=== PATIENT | male | born 1990 | race American Indian/Alaskan Native ===

== ENCOUNTER 2018-08-25 23:24 | Inpatient (IN) | payer SELFPAY ==
[2018-08-26 00:11] LABS: Basophils # (Auto) 0.1 K/mm3 (0.0-0.1); Basophils % (Auto) 0.6 % (0.0-1.8); Eosinophils # (Auto) 0.4 K/mm3 (0.0-0.4); Eosinophils % (Auto) 4.5 % (0.0-4.3); Hemoglobin 13.5 gm/dl (11.8-15.2); Lymphocytes # (Auto) 2.4 K/mm3 (1.2-5.4); Lymphocytes % (Auto) 27.3 % (13.4-35.0); Mean Corpuscular HGB Conc 33 % (32-34); Mean Corpuscular Volume 99 fl (84-94); Monocytes # (Auto) 1.3 K/mm3 (0.0-0.8); Monocytes % (Auto) 15.2 % (0.0-7.3); Platelet Count 272 K/mm3 (140-440); Red Blood Count 4.16 M/mm3 (3.65-5.03); Red Cell Distribution Width 14.3 % (13.2-15.2)
[2018-08-26 00:15] LABS: Bilirubin,Urine NEG (Negative); Blood,Urine NEG (Negative); Color,Urine Amber (Yellow); Mucus,Urine 1+ /HPF; Protein,Urine <15 mg/dL mg/dL (Negative)
--- NOTE | 2018-08-26 00:19 | Emergency Department Report ---
ED Abdominal Pain HPI - General Chief Complaint: Abdominal Pain Stated Complaint: CHEST PAIN SOB BLOOD IN VOMIT Time Seen by Provider: 08/26/18 00:01 Source: patient Mode of arrival: Ambulatory Limitations: No Limitations - History of Present Illness Initial Comments: 27-year-old -[place] male has relocated to [facility] from [place] comes in complaining of nausea vomiting diarrhea with diffuse abdominal pain and chest pain. Patient reports that he has vomited 3 times today and has had multiple episodes of diarrhea with nausea. Patient reports he is taking nothing for his discomfort. Patient reports that he had eaten Citizen Of [place] food on Friday and He started to feel bad. Patient reports he was seen in [facility] a month ago for the same issues. Patient has not followed up with a primary care provider. -: days(s) (3) Location: diffuse Radiation: epigastric Severity: severe Severity scale (0 -10): 10 Quality: cramping, sharp Consistency: constant Improves With: nothing Worsens With: nothing Context: possible food poisoning Treatments Prior to Arrival: other (none) - Related Data Allergies Allergy/AdvReac Type Severity Reaction Status Date / Time No Known Allergies Allergy Unverified 08/25/18 23:34 ED Review of Systems ROS: Stated complaint: CHEST PAIN SOB BLOOD IN VOMIT Other details as noted in HPI Comment: All other systems reviewed and negative Gastrointestinal: abdominal pain, nausea, vomiting Neurological: headache ED Past Medical Hx - Past Medical History Previous Medical History?: No - Surgical History Past Surgical History?: Yes Additional Surgical History: left ankle surgery - Social History Smoking Status: Never Smoker Substance Use Type: None ED Physical Exam - General Limitations: No Limitations General appearance: alert, in no apparent distress - Head Head exam: Present: atraumatic, normocephalic - Eye Eye exam: Present: normal appearance - ENT ENT exam: Present: mucous membranes moist - Neck Neck exam: Present: normal inspection - Respiratory Respiratory exam: Present: normal lung sounds bilaterally. Absent: respiratory distress - Cardiovascular Cardiovascular Exam: Present: regular rate, normal rhythm. Absent: systolic murmur, diastolic murmur, rubs, gallop - GI/Abdominal GI/Abdominal exam: Present: soft, tenderness - Extremities Exam Extremities exam: Present: normal inspection - Back Exam Back exam: Present: normal inspection - Neurological Exam Neurological exam: Present: alert, oriented X3 - Psychiatric Psychiatric exam: Present: normal affect, normal mood - Skin Skin exam: Present: warm, dry, intact, normal color. Absent: rash ED Course Vital Signs 08/25/18 23:30 Temperature 98.0 F Respiratory 16 Rate Blood Pressure 114/70 ED Medical Decision Making - Lab Data Lab Results 08/25/18 08/25/18 08/25/18 Range/Units 23:43 23:43 Unknown WBC 8.7 (4.5-11.0) K/mm3 RBC 4.16 (3.65-5.03) M/mm3 Hgb 13.5 (11.8-15.2) gm/dl Hct 41.0 (35.5-45.6) % MCV 99 H (84-94) fl MCH 32 (28-32) pg MCHC 33 (32-34) % RDW 14.3 (13.2-15.2) % Plt Count 272 (140-440) K/mm3 Lymph % (Auto) 27.3 (13.4-35.0) % [place] % (Auto) 15.2 H (0.0-7.3) % Eos % (Auto) 4.5 H (0.0-4.3) % Baso % (Auto) 0.6 (0.0-1.8) % Lymph # 2.4 (1.2-5.4) K/mm3 [place] # 1.3 H (0.0-0.8) K/mm3 Eos # 0.4 (0.0-0.4) K/mm3 Baso # 0.1 (0.0-0.1) K/mm3 Seg Neutrophils % 52.4 (40.0-70.0) % Seg Neutrophils # 4.5 (1.8-7.7) K/mm3 Sodium 141 (137-145) mmol/L Potassium 4.1 (3.6-5.0) mmol/L Chloride 103.3 (98-107) mmol/L Carbon Dioxide 28 (22-30) mmol/L Anion Gap 14 mmol/L BUN 9 (9-20) mg/dL Creatinine 0.7 L (0.8-1.5) mg/dL Estimated GFR > 60 ml/min BUN/Creatinine Ratio 13 % Glucose 91 (75-100) mg/dL Calcium 8.9 (8.4-10.2) mg/dL Total Bilirubin 3.30 H (0.1-1.2) mg/dL AST 979 H (5-40) units/L ALT 1514 H (7-56) units/L Alkaline Phosphatase 207 H (35-129) units/L Total Protein 6.6 (6.3-8.2) g/dL Albumin 3.6 L (3.9-5) g/dL Albumin/Globulin Ratio 1.2 % Urine Color Nereyda (Yellow) Urine Turbidity Clear (Clear) Urine pH 7.0 (5.0-7.0) Ur Specific [place] 1.015 (1.003-1.030) Urine Protein <15 mg/dl (Negative) mg/dL Urine Glucose (UA) Neg (Negative) mg/dL Urine Ketones Neg (Negative) mg/dL Urine Blood Neg (Negative) Urine Nitrite Neg (Negative) Urine Bilirubin Neg (Negative) Urine Urobilinogen 4.0 (<2.0) mg/dL Ur Leukocyte Esterase Tr (Negative) Urine WBC (Auto) 4.0 (0.0-6.0) /HPF Urine RBC (Auto) 3.0 (0.0-6.0) /HPF U Epithel Cells (Auto) 2.0 (0-13.0) /HPF Urine Mucus 1+ /HPF - EKG Data EKG shows normal: sinus rhythm Rate: normal - Radiology Data Radiology results: report reviewed - Medical Decision Making FINAL REPORT EXAM: CT ABDOMEN PELVIS W CON HISTORY: epigastric pain TECHNIQUE: Routine axial imaging was obtained of the abdomen and pelvis fol lowing the intravenous injection of 100 cc of Omnipaque 300. Delayed imaging was obtained through the kidneys ureters and bladder. Sagittal and coronal reconstructions were reviewed. FINDINGS: The lung bases are clear. Pleural fluid is not seen. The liver, gallbladder, biliary tree, pancreas, spleen, and adrenal glands appear normal. The kidneys reveal an 8 millimeter cortical cyst in the upper pole of left kidney. There is no evidence of hydronephrosis. The abdominal aorta is normal in caliber. The portal vein enhances normally. The bowel loops are normal in caliber and course. The appendix is not seen. There is no evidence of free fluid or adenopathy. In the pelvis the prostate gland and bladder appear normal. The skeletal structures appear well maintained. IMPRESSION: No acute process in the abdomen and pelvis. Appendix not identified. No evidence of any inflammatory process in the right lower quadrant. Small cortical cyst upper pole left kidney. Transcribed By: RB Dictated By: JEANNETTE JOHNSON MD Electronically Authenticated By: JEANNETTE JOHNSON MD Signed Date/Time: 08/26/18148 DD/ 1 TD/TT: 08/26/18151 Critical care attestation.: If time is entered above; I have spent that time in minutes in the direct care of this critically ill patient, excluding procedure time. ED Disposition Clinical Impression: Acute hepatitis B Disposition: OP ADMIT IP TO THIS HOSP Is pt being admited?: Yes Does the pt Need Aspirin: No Condition: Stable Referrals: PRIMARY CARE, [Primary Care Provider] - 3-5 Days
[2018-08-26] MEDS ORDERED: ZOFRAN ODT PO ONE (00:26)
[2018-08-26 00:27] LABS: Albumin 3.6 g/dL (3.9-5); BUN/Creatinine Ratio 13; Blood Urea Nitrogen 9 mg/dL (9-20); Calcium 8.9 mg/dL (8.4-10.2); Hemolysis Index 8
[2018-08-26 00:39] LABS: Alanine Aminotransferase 1514 units/L (7-56)
[2018-08-26] MEDS ORDERED: NACL 0.9% 1000 ML 1,000 ML IV ONE (01:09)
--- NOTE | 2018-08-26 01:49 | Cat Scan Report ---
FINAL REPORT EXAM: CT ABDOMEN PELVIS W CON HISTORY: epigastric pain TECHNIQUE: Routine axial imaging was obtained of the abdomen and pelvis following the intravenous in jection of 100 cc of Omnipaque 300. Delayed imaging was obtained through the kidneys ureters and blad broderick. Sagittal and coronal reconstructions were reviewed. FINDINGS: The lung bases are clear. Pleural fluid is not seen. The liver, gallbladder, biliary tree, pancreas, spleen, and adrenal glands appear normal. The kidneys reveal an 8 millimeter cortical cyst in the upper pole of left kidney. There is no evidence of hydro nephrosis. The abdominal aorta is normal in caliber. The portal vein enhances normally. The bowel loo ps are normal in caliber and course. The appendix is not seen. There is no evidence of free fluid or adenopathy. In the pelvis the prostate gland and bladder appear normal. The skeletal structures appea r well maintained. IMPRESSION: No acute process in the abdomen and pelvis. Appendix not identified. No evidence of any inflammatory process in the right lower quadrant. Small cortical cyst upper pole left kidney.
[2018-08-26 01:54] LABS: Hepatitis B Surface Antigen Reactive (Negative); Hepatitis C Virus Antibody Non-Reactive (NonReactive)
[2018-08-26] MEDS ORDERED: ZOFRAN IV PRN (03:55)
[2018-08-26] MEDS ORDERED: TYLENOL PO PRN (03:56)
[2018-08-26] MEDS ORDERED: NACL 0.9% 1000 ML 1,000 ML IV SCH (04:00)
--- NOTE | 2018-08-26 05:14 | History and Physical Report ---
CHIEF COMPLAINT: Abdominal pain. Other complaint includes hematemesis, nausea, vomiting and diarrhea. HISTORY OF PRESENT ILLNESS: The patient is a 27-year-old male who has been having abdominal pain going on for a few days and was associated with nausea, vomiting and diarrhea. Also, the patient complained about having hematemesis 3 times before presenting to the Emergency Room. There is no history of hematochezia, no history of melena. The patient also denies history of fever, shortness of breath or chest pain and said that the pain is mainly in the epigastric area with severity of about 10/10. Pain is sharp in consistency and not affected by movement and the pain does not radiate. PAST MEDICAL HISTORY: Unremarkable. PAST SURGICAL HISTORY: Pertinent for left ankle surgery. FAMILY HISTORY: Noncontributory. SOCIAL HISTORY: The patient does not smoke, does not drink alcohol and does not use illicit drugs. MEDICATIONS: The patient is not on any medication. ALLERGIES: There are no known drug allergies. REVIEW OF SYSTEMS: CONSTITUTIONAL: There is no fever, no chills, no diaphoresis. HEENT: There is no headache or sore throat. CARDIOVASCULAR SYSTEM: There is no chest pain or orthopnea. RESPIRATORY SYSTEM: There is no shortness of breath or cough. GASTROINTESTINAL SYSTEM: Abdominal pain is present. Nausea, vomiting and diarrhea present. Hematemesis present. No hematochezia, no melena, no constipation. NEUROLOGICAL SYSTEM: There is no numbness, no dizziness, no altered mental status. MUSCULOSKELETAL SYSTEM: There is no joint pain or swelling. DERMATOLOGICAL SYSTEM: There is no skin rash or itching. GENITOURINARY SYSTEM: There is no dysuria, hematuria or flank pain. Rest of system review is normal. PHYSICAL EXAMINATION: GENERAL: At the time of exam, the patient was found to be alert, oriented x 3, not in acute distress. VITAL SIGNS: At the initial time of presentation show a temperature of 98 degrees Fahrenheit, pulse of ____, blood pressure 114/70, normal O2 sats on room air. HEENT: Shows pupils to be equal, round, reactive to light and accommodation. Extraocular muscles are intact. NECK: Supple with no JVD or carotid bruit. CARDIOVASCULAR SYSTEM: Shows normal first and second heart sounds with no gallops or murmur. RESPIRATORY SYSTEM: Shows good air entry on both sides of the lungs with no abnormal breath sounds. GASTROINTESTINAL SYSTEM: Showed abdomen to be full, soft with tenderness in the suprapubic area and left lower quadrant as well as right lower quadrant. There is no organomegaly. Bowel sound is normal. There is no rebound tenderness or rigidity. NEUROLOGIC: Shows no focal deficit. MUSCULOSKELETAL SYSTEM: Shows no joint swelling or tenderness. DERMATOLOGICAL SYSTEM: Shows no skin rash. GENITOURINARY SYSTEM: Showing no costovertebral angle tenderness. PERTINENT LABORATORY AND IMAGING STUDY: The patient had CT of the abdomen and pelvis done which shows no active process in the abdomen and pelvis. The appendix was not identified and there was no evidence of any inflammatory process in the right lower quadrant. Labs results; the patient had CBC done with normal white count, normal hemoglobin and normal hematocrit. CBC differential showed high monocyte count of 15.2% and high eosinophilic count of 4.5%. The patient's chemistry showed elevated total bilirubin of 3.3 with elevated liver transaminases showing high AST of 979 and high ALT of 1514 with elevated alkaline phosphatase of 207. The patient's albumin level is low with a value of 3.6 and lipase level is high with a value of 196. The patient's urinalysis showed trace urine leukocyte esterase, negative urine nitrites, normal urine WBC, and no bacteria was seen. The patient has serology done with nonreactive hepatitis A test and reactive hepatitis B surface antigen as well as reactive hepatitis B core IgM antibody and nonreactive hepatitis C. DIAGNOSES: 1. Acute hepatitis B infection. 2. Hemetemesis PLAN OF ACTION: 1. The patient will be admitted to medical/surgical [place]. 2. The patient will be on IV normal saline at 125 mL an hour. 3. The patient will be on IV morphine 2 mg every 4 hours as needed for pain and IV Zofran 4 mg every 8 hours for nausea and vomiting. 4. The patient will have Infectious Disease consult with Dr. Mima Joseph for initiation of antihepatitis B treatment. 5. The patient will also have Gastroenterology consult with Dr. Wyatt Mott of [facility] because of hematemesis. 6. The patient will have hemoglobin and hematocrit checked every 6 hours x 2 more levels. 7. The patient will remain n.p.o. until seen by the wash oil cooler operator. 8. The patient will be on Protonix 40 mg IV every 12 hours and will be on IV Zofran 4 mg every 8 hours for nausea and vomiting. JOB# [id number] OCN/NTS MTDD
[2018-08-26 06:03] LABS: Hematocrit 36.9 % (35.5-45.6); Hemoglobin 12.5 gm/dl (11.8-15.2)
[2018-08-26] MEDS ORDERED: D5/0.45NS 1,000 ML IV ONE ×2 (06:18→11:55)
[2018-08-26] MEDS ORDERED: D5/0.45NS 1,000 ML IV SCH ×2 (06:20→07:00)
[2018-08-26] MEDS ORDERED: PROTONIX IV ONE (10:34)
[2018-08-26] MEDS ORDERED: MORPHINE ONE (10:36)
[2018-08-26] MEDS: MORPHINE IV PRN ×2 (10:43→21:09)
[2018-08-26] MEDS: PROTONIX IV SCH ×2 (10:43→21:09)
--- NOTE | 2018-08-26 12:34 | Gastroenterology Consultation ---
Addendum entered and electronically signed by TASHA HARDEN MD 08/26/18 18:06: Patient seen and examined on08/26/2017. Agree with A/P and recommendations as stated. 27 yo male with no pmh presenting with diffuse abdominal pain and nausea/vomiting after having [place] food. Found to have acute viral hepatitis B based on serologies. H/H stable and no additional hematemesis. - monitor liver enzymes and H/H. - cont with PPI. - ID on board. agree with checking also for HIV but patient refused. - will follow. Original Note: History of Present Illness - Reason for Consult Consult date: 08/26/18 hematemesis Requesting physician: AJIT DAVILA - History of Present Illness Patient is a 27 y/o male with no significant PMH who presented to ED with c/o diffuse abd pain described as cramping, diarrhea, and N/V x 3-4 days after ea ting on [place] food on Friday. Upon admission, his LFTs were found to be significantly elevated with hepatitis panel revealing hepatitis Bs Antigen and hepatitis B core IgM Ab positive and was admitted for an acute hep B infection. ID consult pending. Abd CT showed no acute process (liver normal). He also c/o an episode of hematemesis to which GI has been consulted. H/H WNL. This afternoon patient was resting on stretcher w/o acute distress. He reports 1 episode of scant amount of hematemesis yesterday after multiple episodes of N/V, which has now improved. No melena or hematochezia. Admits to some continued intermittent abd cramping and diarrhea which is also improving. Denies fever, CP, SOB, dizziness, wt loss, dysphagia, odynophagia, jaundice, or constipation. No prior hx of liver disease or PUD. No previous EGD. No NSAID use. No Fhx of liver disease. No IV drug use. Admits to same sex intercourse. Last tattoo received 06/2018. Past History Past Medical History: No medical history Past Surgical History: No surgical history, Other (left ankle) Social history: denies: smoking, alcohol abuse Family history: no significant family history Medications and Allergies Allergies Allergy/AdvReac Type Severity Reaction Status Date / Time No Known Allergies Allergy Unverified 08/25/18 23:34 Home Medications Medication Instructions Recorded Confirmed Last Taken Type No Known Home Medications [No 08/26/18 08/26/18 Unknown History Reported Home Medications] Active Meds: Active Medications Acetaminophen (Tylenol) 650 mg PO Q4H PRN PRN Reason: Fever >101 Dextrose/Sodium Chloride (D5/0.45ns) 1,000 mls @ 125 mls/hr IV DIRECT FRANNY Stop: 08/26/18 14:00 Last Admin: 08/26/18 06:26 Dose: 125 mls/hr Documented by: Morphine Sulfate (Morphine) 2 mg IV Q4H PRN PRN Reason: Pain, Moderate (4-6) Last Admin: 08/26/18 10:43 Dose: 2 mg Documented by: Ondansetron HCl (Zofran) 4 mg IV Q8H PRN PRN Reason: Nausea And Vomiting Pantoprazole Sodium (Protonix) 40 mg IV BID [facility] Last Admin: 08/26/18 10:43 Dose: 40 mg Documented by: medications reviewed/updated as required Review of Systems - Review of Systems All systems: negative Gastrointestinal: abdominal pain (cramping), nausea, vomiting, hematemesis, no melena, no hematochezia Exam - Constitutional Vital Signs: Temp Pulse Resp BP Pulse Ox 98.5 F 55 L 16 113/51 99 08/26/18 04:39 08/26/18 08:21 08/26/18 08:21 08/26/18 08:21 08/26/18 08:21 General appearance: no acute distress - EENT Eyes: PERRL, EOM intact ENT: hearing intact - Respiratory Respiratory: bilateral: CTA - Cardiovascular Rhythm: other (bradycardia) - Gastrointestinal General gastrointestinal: Present: soft, non-tender, non-distended, normal bowel sounds - Neurologic Neurological: alert and oriented x3 - Labs CBC & Chem 7: 08/26/18 05:50 08/25/18 23:43 Lab Results: Laboratory Results - last 24 hr 08/25/18 08/25/18 08/25/18 23:43 23:43 Unknown WBC 8.7 RBC 4.16 Hgb 13.5 Hct 41.0 MCV 99 H MCH 32 MCHC 33 RDW 14.3 Plt Count 272 Lymph % (Auto) 27.3 [place] % (Auto) 15.2 H Eos % (Auto) 4.5 H Baso % (Auto) 0.6 Lymph # 2.4 [place] # 1.3 H Eos # 0.4 Baso # 0.1 Seg Neutrophils % 52.4 Seg Neutrophils # 4.5 Sodium 141 Potassium 4.1 Chloride 103.3 Carbon Dioxide 28 Anion Gap 14 BUN 9 Creatinine 0.7 L Estimated GFR > 60 BUN/Creatinine Ratio 13 Glucose 91 Calcium 8.9 Total Bilirubin 3.30 H AST 979 H ALT 1514 H Alkaline Phosphatase 207 H Total Creatine Kinase Total Protein 6.6 Albumin 3.6 L Albumin/Globulin Ratio 1.2 Lipase Urine Color [place]da Urine Turbidity Clear Urine pH 7.0 Ur Specific [place] 1.015 Urine Protein <15 mg/dl Urine Glucose (UA) Neg Urine Ketones Neg Urine Blood Neg Urine Nitrite Neg Urine Bilirubin Neg Urine Urobilinogen 4.0 Ur Leukocyte Esterase Tr Urine WBC (Auto) 4.0 Urine RBC (Auto) 3.0 U Epithel Cells (Auto) 2.0 Urine Mucus 1+ Hepatitis A IgM Ab Hep Bs Antigen Hep B Core IgM Ab Hepatitis C Antibody 08/26/18 08/26/18 08/26/18 00:00 01:09 01:09 WBC RBC Hgb Hct MCV MCH MCHC RDW Plt Count Lymph % (Auto) [place] % (Auto) Eos % (Auto) Baso % (Auto) Lymph # [place] # Eos # Baso # Seg Neutrophils % Seg Neutrophils # Sodium Potassium Chloride Carbon Dioxide Anion Gap BUN Creatinine Estimated GFR BUN/Creatinine Ratio Glucose Calcium Total Bilirubin AST ALT Alkaline Phosphatase Total Creatine Kinase 99 Total Protein Albumin Albumin/Globulin Ratio Lipase 196 H Urine Color Urine Turbidity Urine pH Ur Specific [place] Urine Protein Urine Glucose (UA) Urine Ketones Urine Blood Urine Nitrite Urine Bilirubin Urine Urobilinogen Ur Leukocyte Esterase Urine WBC (Auto) Urine RBC (Auto) U Epithel Cells (Auto) Urine Mucus Hepatitis A IgM Ab Non-reactive Hep Bs Antigen Reactive Hep B Core IgM Ab Reactive A Hepatitis C Antibody Non-reactive 08/26/18 05:50 WBC RBC Hgb 12.5 Hct 36.9 MCV MCH MCHC RDW Plt Count Lymph % (Auto) [place] % (Auto) Eos % (Auto) Baso % (Auto) Lymph # [place] # Eos # Baso # Seg Neutrophils % Seg Neutrophils # Sodium Potassium Chloride Carbon Dioxide Anion Gap BUN Creatinine Estimated GFR BUN/Creatinine Ratio Glucose Calcium Total Bilirubin AST ALT Alkaline Phosphatase Total Creatine Kinase Total Protein Albumin Albumin/Globulin Ratio Lipase Urine Color Urine Turbidity Urine pH Ur Specific [place] Urine Protein Urine Glucose (UA) Urine Ketones Urine Blood Urine Nitrite Urine Bilirubin Urine Urobilinogen Ur Leukocyte Esterase Urine WBC (Auto) Urine RBC (Auto) U Epithel Cells (Auto) Urine Mucus Hepatitis A IgM Ab Hep Bs Antigen Hep B Core IgM Ab Hepatitis C Antibody Assessment and Plan 1.hematemesis -H/H WNL (12.5/36.9) -continue to monitor H/H and transfuse as needed -hold blood thinning medications -patient reports diffuse abd cramping with associated diarrhea and N/V x 3-4 days after eating [place] food on Friday with N/V and diarrhea improving. He reports 1 episode of hematemesis with a scant amount of bright red blood yesterday after multiple episodes of vomiting with non-bloody emesis. No further signs of bleeding overnight or today. No melena or hematochezia. -currently HD stable -etiology-likely 2/2 M-W tear vs esophagitis vs other -no plans for EGD at this time unless overt bleeding develops given no clinical evidence of significant GI bleeding -okay to start on clears -continue PPI and supportive care 2.acute hepatitis B infection -elevated LFTs (T.thierry 3.30, AST 979, ALT 1514, alk phos 207) -hepatitis Bs Ag and hepatitis B core IgM Ab positive -abd CT w/o acute findings (liver normal) -ID consult pending -further hep B serologies and INR pending -continue to trend labs and supportive care -will follow
[2018-08-26 14:10] LABS: Hematocrit 39.2 % (35.5-45.6); Hemoglobin 13.1 gm/dl (11.8-15.2)
[2018-08-26 14:21] LABS: INR 1.18 (0.87-1.13)
[2018-08-26 14:31] LABS: Albumin 3.3 g/dL (3.9-5); BUN/Creatinine Ratio 9; Blood Urea Nitrogen 7 mg/dL (9-20); Calcium 8.3 mg/dL (8.4-10.2); Hemolysis Index 22
[2018-08-26 14:47] LABS: Alanine Aminotransferase 1432 units/L (7-56)
--- NOTE | 2018-08-26 15:03 | Consultation ---
History of Present Illness - Reason for Consult Consult date: 08/26/18 Acute Hepatitis B Requesting physician: AJIT DAVILA - History of Present Illness The patient is a 27-year-old male with no significant past medical history who developed abdominal cramping, nausea and vomiting about 2-3 days prior, finally he had an episode of scant hematemesis and hence he came to the hospital. Here, he was noted to have a significant transaminitis and acute hepatitis panel was suggestive of an acute hepatitis B infection. Hence infectious diseases was consulted. He denies any fevers or chills. He currently is feeling well with no more episodes of hematemesis. He denies any IV or recreational drug use, drinks alcohol socially, denies any smoking. He admits to MSM behavior. States his last HIV test was in July 2018 and was negative. He moved here from [place] about 6 months ago and has been with a stable partner. He is unsure if he has been vaccinated for Hepatitis A in the past. Review of Systems: General: no fevers,chills or rigors HEENT: no new visual disturbance Respiratory: No cough, sputum, hemoptysis or shortness of breath Cardiovascular: No chest pain, syncope Gastrointestinal: + nausea, vomiting and hematemesis Genitourinary: No dysuria or hematuria Musculoskeletal: No new or worsening neck pain or back pain Neurologic: No headaches, seizures Hematologic: No easy bruising or bleeding Endocrine: No night sweats or acute weight loss Skin: negative for rash, jaundice Psychiatric: No suicidal or homicidal ideation Past History Past Medical History: No medical history Past Surgical History: No surgical history, Other (left ankle) Social history: denies: smoking, alcohol abuse Family history: no significant family history Medications and Allergies Allergies Allergy/AdvReac Type Severity Reaction Status Date / Time No Known Allergies Allergy Unverified 08/25/18 23:34 Home Medications Medication Instructions Recorded Confirmed Last Taken Type No Known Home Medications [No 08/26/18 08/26/18 Unknown History Reported Home Medications] Active Meds: Active Medications Acetaminophen (Tylenol) 650 mg PO Q4H PRN PRN Reason: Fever >101 Morphine Sulfate (Morphine) 2 mg IV Q4H PRN PRN Reason: Pain, Moderate (4-6) Last Admin: 08/26/18 10:43 Dose: 2 mg Documented by: Ondansetron HCl (Zofran) 4 mg IV Q8H PRN PRN Reason: Nausea And Vomiting Pantoprazole Sodium (Protonix) 40 mg IV BID FRANNY Last Admin: 08/26/18 10:43 Dose: 40 mg Documented by: Physical Examination - Physical Exam Narrative exam: Physical Exam: Constitutional: Alert, cooperative. No acute distress Head, Ears, Nose: Normocephalic, atraumatic. External ears, nose normal Eyes: Conjunctivae/corneas clear. No icterus. No ptosis. Neck: Supple, no meningeal signs Oral: dentition fair, no thrush Cardiovascular: S1, S2 normal. Respiratory: Good air entry, clear to auscultation bilaterally GI: Soft, mild tenderness in upper abdomen; bowel sounds normal. No peritoneal signs Musculoskeletal: No pedal edema, no cyanosis. Skin: No rash or abscess Hem/Lymphatic: No palpable cervical or supraclavicular nodes. No lymphangitis Psych: Mood ok. Affect normal Neurological: Awake, alert, oriented. No gross abnormality - Constitutional Vitals: Vital Signs Temp Pulse Resp BP Pulse Ox 98.3 F 50 L 16 116/64 95 08/26/18 14:29 08/26/18 14:29 08/26/18 14:29 08/26/18 14:29 08/26/18 14:29 Temperature -Last 24 Hours Temperature 98.3 F Temperature 98.5 F Temperature 98.0 F Results - Labs CBC & Chem 7: 08/26/18 13:51 08/26/18 13:51 Labs: Abnormal lab results 08/25/18 08/25/18 08/26/18 Range/Units 23:43 23:43 00:00 MCV 99 H (84-94) fl [place] % (Auto) 15.2 H (0.0-7.3) % Eos % (Auto) 4.5 H (0.0-4.3) % [place] # 1.3 H (0.0-0.8) K/mm3 PT (12.2-14.9) Sec. INR (0.87-1.13) BUN (9-20) mg/dL Creatinine 0.7 L (0.8-1.5) mg/dL Calcium (8.4-10.2) mg/dL Total Bilirubin 3.30 H (0.1-1.2) mg/dL AST 979 H (5-40) units/L ALT 1514 H (7-56) units/L Alkaline Phosphatase 207 H (35-129) units/L Albumin 3.6 L (3.9-5) g/dL Lipase 196 H (13-60) units/L Acetaminophen (10.0-30.0) ug/mL Hep B Core IgM Ab (NonReactive) 08/26/18 08/26/18 08/26/18 Range/Units 01:09 13:51 13:51 MCV (84-94) fl [place] % (Auto) (0.0-7.3) % Eos % (Auto) (0.0-4.3) % [place] # (0.0-0.8) K/mm3 PT 15.4 H (12.2-14.9) Sec. INR 1.18 H (0.87-1.13) BUN 7 L (9-20) mg/dL Creatinine (0.8-1.5) mg/dL Calcium 8.3 L (8.4-10.2) mg/dL Total Bilirubin 3.00 H (0.1-1.2) mg/dL AST 964 H (5-40) units/L ALT 1432 H (7-56) units/L Alkaline Phosphatase 190 H (35-129) units/L Albumin 3.3 L (3.9-5) g/dL Lipase (13-60) units/L Acetaminophen (10.0-30.0) ug/mL Hep B Core IgM Ab Reactive A (NonReactive) 08/26/18 Range/Units 13:51 MCV (84-94) fl [place] % (Auto) (0.0-7.3) % Eos % (Auto) (0.0-4.3) % [place] # (0.0-0.8) K/mm3 PT (12.2-14.9) Sec. INR (0.87-1.13) BUN (9-20) mg/dL Creatinine (0.8-1.5) mg/dL Calcium (8.4-10.2) mg/dL Total Bilirubin (0.1-1.2) mg/dL AST (5-40) units/L ALT (7-56) units/L Alkaline Phosphatase (35-129) units/L Albumin (3.9-5) g/dL Lipase (13-60) units/L Acetaminophen < 5.0 L (10.0-30.0) ug/mL Hep B Core IgM Ab (NonReactive) - Imaging and Cardiology CT scan - abdomen: report reviewed, image reviewed (no acute process seen.) Assessment and Plan A/P: 27/M with: #1 Acute hepatitis B infection: As evident by positive hepatitis B surface antigen and hepatitis B core IgM antibody with AST and ALT significantly elevated. Albumin today is 3.3, INR is 1.1 suggesting good synthetic liver function. No evidence of fulminant hepatic failure at this time. Risk factor is MSM behavior. About 90% of acutely acquired hepatitis B infections in healthy adults may be self-limiting and can spontaneously clear. There is currently no indication for antiviral therapy. He can be followed over time in the infectious disease clinic with regular monitoring of AST, ALT, hepatitis E antigen and hepatitis B DNA PCR and depending on these, a treatment decision can be made. He should be immunized for hepatitis A, patient refusing at this time, stating he needs time to process this information. Also check HIV status but patient is refusing at this time, stating he had a negative test in Jul 2018. Recs: - no role for anti-viral therapy at this time - About 90% of acutely acquired hepatitis B infections in healthy adults may be self-limiting and can spontaneously clear. There is currently no indication for antiviral therapy. He can be followed over time in the infectious disease clinic with regular monitoring of AST, ALT, hepatitis E antigen and hepatitis B DNA PCR. - He should be immunized for hepatitis A, patient refusing at this time, stating he needs time to process this information. - Also check HIV status but patient is refusing at this time, stating he had a negative test in Jul 2018. Will follow. Please call with questions. MD [facility] C: [phone] O: [phone] F: [phone]
[2018-08-27 01:20] LABS: Hematocrit 38.6 % (35.5-45.6); Hemoglobin 12.8 gm/dl (11.8-15.2)
--- NOTE | 2018-08-27 09:27 | Progress Note ---
Assessment and Plan A/P: 27/ with: #1 Acute hepatitis B infection: As evident by positive hepatitis B surface antigen and hepatitis B core IgM antibody with AST and ALT significantly elevated. Albumin today is 3.3, INR is 1.1 suggesting good synthetic liver function. No evidence of fulminant hepatic failure at this time. Risk factor is MSM behavior. About 90% of acutely acquired hepatitis B infections in healthy adults may be self-limiting and can spontaneously clear. There is currently no indication for antiviral therapy. He can be followed over time in the infectious disease clinic with regular monitoring of AST, ALT, hepatitis E antigen and hepatitis B DNA PCR and depending on these, a treatment decision can be made. He should be immunized for hepatitis A, patient refusing at this time, stating he needs time to process this information. Also check HIV status but patient is refusing at this time, stating he had a negative test in Jul 2018. Recs: - no role for anti-viral therapy at this time -Check HIV rapid, patient consented -[facility], does not have insurance or steady employment [facility] M: [phone] O:[phone] Subjective Date of service: 08/27/18 Interval history: Patient seen and examined.. Denied pain, fever, SOB or rashes. Stated that he was ready to go home. Discussed importance of knowing HIV status, consented to HIV testing. Objective - Exam Narrative Exam: Constitutional: Alert, cooperative. No acute distress Head, Ears, Nose: Normocephalic, atraumatic. External ears, nose normal Eyes: Conjunctivae/corneas clear. No icterus. No ptosis. Neck: Supple, no meningeal signs Oral: dentition fair, no thrush Cardiovascular: S1, S2 normal. Respiratory: Good air entry, clear to auscultation bilaterally GI: Soft, mild tenderness in upper abdomen; bowel sounds normal. No peritoneal signs Musculoskeletal: No pedal edema, no cyanosis. Skin: No rash or abscess Hem/Lymphatic: No palpable cervical or supraclavicular nodes. No lymphangitis Psych: Mood ok. Affect normal Neurological: Awake, alert, oriented. No gross abnormality - Constitutional Vitals: Vital Signs Temp Pulse Resp BP Pulse Ox 98.1 F 58 L 18 121/55 98 08/27/18 05:57 08/27/18 05:57 08/27/18 05:57 08/27/18 05:57 08/27/18 05:57 Temperature -Last 24 Hours Temperature 98.1 F Temperature 97.7 F Temperature 99.1 F Temperature 98.7 F Temperature 98.3 F - Labs CBC & Chem 7: 08/27/18 01:03 08/26/18 13:51 Labs: Abnormal lab results 08/26/18 08/26/18 08/26/18 Range/Units 13:51 13:51 13:51 PT 15.4 H (12.2-14.9) Sec. INR 1.18 H (0.87-1.13) BUN 7 L (9-20) mg/dL Calcium 8.3 L (8.4-10.2) mg/dL Total Bilirubin 3.00 H (0.1-1.2) mg/dL AST 964 H (5-40) units/L ALT 1432 H (7-56) units/L Alkaline Phosphatase 190 H (35-129) units/L Albumin 3.3 L (3.9-5) g/dL Acetaminophen < 5.0 L (10.0-30.0) ug/mL
[2018-08-27] MEDS: PROTONIX IV SCH ×2 (10:38→22:46)
[2018-08-27 14:27] LABS: Albumin 3.4 g/dL (3.9-5); BUN/Creatinine Ratio 11; Blood Urea Nitrogen 8 mg/dL (9-20); Calcium 8.8 mg/dL (8.4-10.2); Hemolysis Index 26
[2018-08-27 14:40] LABS: Alanine Aminotransferase 1660 units/L (7-56)
--- NOTE | 2018-08-27 14:50 | Gastroenterology Progress Note ---
Addendum entered and electronically signed by TASHA HARDEN MD 08/27/18 18:34: Patient seen and examined. Agree with A/P and recommendations as stated. Acute hepatitis B infection Liver enzymes trending up today along with Bilirubin. No signs of overt GI bleeding. H/H stable. - will trend CMP tomorrow. - supportive care. anti-viral not indicated. Original Note: Assessment and Plan 1.hematemesis -H/H WNL (12.8/38.6) -continue to monitor H/H and transfuse as needed -no active signs of bleeding overnight or this am -etiology-likely 2/2 M-W tear vs esophagitis vs other -no plans for EGD at this time unless overt bleeding develops given no clinical evidence of significant GI bleeding -continue PPI and supportive care 2.acute hepatitis B infection -INR 1.18 -LFTs-slight trend up (T.thierry 5.60, AST 1173, ALT 1660, alk phos 195) -hepatitis Bs Ag and hepatitis B core IgM Ab positive (further hep B serologies pending) -HIV pending (negative 07/2018 per pt report) -abd CT w/o acute findings (liver normal) -ID following-no recommendations for antiviral therapy at this time (may be self-limiting and can spontaneously clear)- further workup/management as outpatient -clinically, patient reports feeling better today with no abd pain or N/V. Diarrhea resolved. Tolerating diet. -continue to trend labs and supportive care -will follow Subjective Date of service: 08/27/18 Principal diagnosis: hematemesis Interval history: Patient w/o distress. No active signs of bleeding overnight or this morning. Denies abd pain or N/V. Diarrhea resolved. Tolerating diet. Objective - Constitutional Vitals: Temp Pulse Resp BP Pulse Ox 98.2 F 59 L 22 133/69 100 08/27/18 12:11 08/27/18 12:11 08/27/18 12:11 08/27/18 12:11 08/27/18 12:11 General appearance: no acute distress - Respiratory Respiratory: bilateral: CTA - Cardiovascular Rhythm: regular Heart Sounds: Present: S1 & S2 - Gastrointestinal General gastrointestinal: Present: soft, non-tender, non-distended, normal bowel sounds - Neurologic Neurological: alert and oriented x3 - Labs CBC & Chem 7: 08/27/18 01:03 08/27/18 13:48 Labs: Laboratory Results - last 24 hr 08/26/18 08/27/18 08/27/18 13:51 01:03 13:48 Hgb 12.8 Hct 38.6 Sodium 137 Potassium 3.9 Chloride 99.4 Carbon Dioxide 26 Anion Gap 16 BUN 8 L Creatinine 0.7 L Estimated GFR > 60 BUN/Creatinine Ratio 11 Glucose 81 Calcium 8.8 Total Bilirubin 5.60 H AST 964 H 1173 H ALT 1432 H 1660 H Alkaline Phosphatase 195 H Total Protein 7.2 Albumin 3.4 L Albumin/Globulin Ratio 0.9
--- NOTE | 2018-08-27 15:58 | Discharge Summary ---
Providers - Providers Date of Admission: 08/26/18 03:50 Attending physician: TAMIKA SAVAGE MD 08/26/18 06:00 Consult to Physician [CONS] Routine Comment: CLD DR ESQUIVEL @0835/NO ANS;cld dr veliz @0904 informd Consulting Provider: ZAIRE EVANS Physician Instructions: Reason For Exam: ACUTE HEPATITIS B INFECTION Consult to Physician [CONS] Routine Comment: CONSULT CLD TO [facility]/DR HARDEN STEM FRAZER 0810 Consulting Provider: RODERICK VALDES Physician Instructions: Reason For Exam: HEMETEMESIS Primary care physician: KEVIN SCHUMACHER Hospitalization Condition: Stable Hospital course: 27-year-old man who has relocated to [place] from [place]. He presented complaining of nausea vomiting diarrhea and diffuse abdominal pain. He was diagnosed with acute hepatitis B infection. He was treated with IV fluids and supportive medications. He clinically improved, he received gastroenterology and infectious disease consultations. It was recommended that he follow up in clinic after discharge. Diagnosis Acute hepatitis B infection Transaminitis Disposition: TO HOME OR SELFCARE Time spent for discharge: 33 minutes Core Measure Documentation - Palliative Care Palliative Care/ Comfort Measures: Not Applicable - Core Measures Any of the following diagnoses?: none Exam - Constitutional Vitals: Temp Pulse Resp BP Pulse Ox 98.2 F 59 L 22 133/69 100 08/27/18 12:11 08/27/18 12:11 08/27/18 12:11 08/27/18 12:11 08/27/18 12:11 General appearance: Present: no acute distress, well-nourished - EENT Eyes: Present: PERRL ENT: hearing intact, clear oral mucosa - Neck Neck: Present: supple, normal ROM - Respiratory Respiratory effort: normal Respiratory: bilateral: CTA - Cardiovascular Heart Sounds: Present: S1 & S2. Absent: rub, click - Extremities Extremities: pulses symmetrical, No edema Peripheral Pulses: within normal limits - Abdominal General gastrointestinal: Present: soft, non-tender, non-distended, normal bowel sounds Male genitourinary: Present: normal - Integumentary Integumentary: Present: clear, warm, dry - Musculoskeletal Musculoskeletal: gait normal, strength equal bilaterally - Psychiatric Psychiatric: appropriate mood/affect, intact judgment & insight - Neurologic Neurologic: CNII-XII intact, moves all extremities Plan Follow up with: PRIMARY CARE, [Referring] - 3-5 Days Forms: Work/School Release Form
[2018-08-27] MEDS: MORPHINE IV PRN (22:46)
[2018-08-28 06:18] LABS: Basophils % (Auto) 0.4 % (0.0-1.8); Eosinophils # (Auto) 0.8 K/mm3 (0.0-0.4); Eosinophils % (Auto) 10.6 % (0.0-4.3); Hematocrit 38.2 % (35.5-45.6); Hemoglobin 12.8 gm/dl (11.8-15.2); Lymphocytes # (Auto) 2.4 K/mm3 (1.2-5.4); Lymphocytes % (Auto) 32.1 % (13.4-35.0); Mean Corpuscular HGB Conc 34 % (32-34); Mean Corpuscular Volume 98 fl (84-94); Monocytes # (Auto) 1.1 K/mm3 (0.0-0.8); Monocytes % (Auto) 14.9 % (0.0-7.3); Platelet Count 219 K/mm3 (140-440); Red Blood Count 3.89 M/mm3 (3.65-5.03); Red Cell Distribution Width 14.1 % (13.2-15.2)
[2018-08-28 06:21] LABS: INR 1.14 (0.87-1.13)
[2018-08-28 06:48] LABS: Albumin 3.2 g/dL (3.9-5); BUN/Creatinine Ratio 11; Blood Urea Nitrogen 9 mg/dL (9-20); Calcium 8.4 mg/dL (8.4-10.2); Hemolysis Index 7
[2018-08-28 06:58] VITALS: BP 115/67
[2018-08-28 07:02] LABS: Alanine Aminotransferase 1352 units/L (7-56)
--- NOTE | 2018-08-28 10:29 | Gastroenterology Progress Note ---
Addendum entered and electronically signed by TASHA HARDEN MD 08/28/18 17:39: Patient seen and examined on 08/28/2018. Agree with A/P and recommendations as stated. Liver enzymes trending down. Expect continued downtrending with acute hep b however, will need follow up in clinic. This was strongly expressed to the patient. Original Note: Assessment and Plan 1.hematemesis -H/H WNL -continue to monitor H/H and transfuse as needed -no active signs of bleeding -etiology-likely 2/2 M-W tear vs esophagitis vs other -no plans for EGD at this time unless overt bleeding develops given no clinical evidence of significant GI bleeding -continue PPI and supportive care 2.acute hepatitis B infection -INR 1.14 (suggesting good synthetic liver function) -LFTs-trending down (T.thierry 3.30, AST 842, ALT 1352, alk phos 188) -hepatitis Bs Ag and hepatitis B core IgM Ab positive (further hep B serologies pending) -HIV negative -abd CT w/o acute findings (liver normal) -ID following-no recommendations for antiviral therapy at this time (may be self-limiting and can spontaneously clear)- further workup/management as outpa tient -clinically, patient is stable w/o GI complaints. Denies abd pain or N/V. Diarrhea resolved. Tolerating diet. -patient is okay to be discharged per GI standpoint with follow up in clinic ~ 2 weeks (need for f/u discussed with patient with understanding voiced; office information/card given to patient) -will sign off, please call if needed Subjective Date of service: 08/28/18 Principal diagnosis: hematemesis Interval history: Patient w/o distress. No active signs of bleeding overnight or this morning. Denies abd pain, N/V, or diarrhea. Tolerating diet. Objective - Constitutional Vitals: Temp Pulse Resp BP Pulse Ox 98.1 F 67 16 115/67 99 08/28/18 05:09 08/28/18 05:09 08/28/18 05:09 08/28/18 05:09 08/28/18 05:09 General appearance: no acute distress - Respiratory Respiratory: bilateral: CTA - Cardiovascular Rhythm: regular Heart Sounds: Present: S1 & S2 - Gastrointestinal General gastrointestinal: Present: soft, non-tender, non-distended, normal bowel sounds - Neurologic Neurological: alert and oriented x3 - Labs CBC & Chem 7: 08/28/18 05:25 08/28/18 05:25 Labs: Laboratory Results - last 24 hr 08/27/18 08/27/18 08/28/18 13:48 13:48 05:25 WBC 7.4 RBC 3.89 Hgb 12.8 Hct 38.2 MCV 98 H MCH 33 H MCHC 34 RDW 14.1 Plt Count 219 Lymph % (Auto) 32.1 [place] % (Auto) 14.9 H Eos % (Auto) 10.6 H Baso % (Auto) 0.4 Lymph # 2.4 [place] # 1.1 H Eos # 0.8 H Baso # 0.0 Seg Neutrophils % 42.0 Seg Neutrophils # 3.1 PT INR Sodium 137 Potassium 3.9 Chloride 99.4 Carbon Dioxide 26 Anion Gap 16 BUN 8 L Creatinine 0.7 L Estimated GFR > 60 BUN/Creatinine Ratio 11 Glucose 81 Calcium 8.8 Total Bilirubin 5.60 H AST 1173 H ALT 1660 H Alkaline Phosphatase 195 H Total Protein 7.2 Albumin 3.4 L Albumin/Globulin Ratio 0.9 HIV 1&2 Antibody Rapid Non react HIV P24 Antigen Non react 08/28/18 08/28/18 05:25 05:25 WBC RBC Hgb Hct MCV MCH MCHC RDW Plt Count Lymph % (Auto) [place] % (Auto) Eos % (Auto) Baso % (Auto) Lymph # [place] # Eos # Baso # Seg Neutrophils % Seg Neutrophils # PT 15.0 H INR 1.14 H Sodium 137 Potassium 3.7 Chloride 101.0 Carbon Dioxide 27 Anion Gap 13 BUN 9 Creatinine 0.8 Estimated GFR > 60 BUN/Creatinine Ratio 11 Glucose 88 Calcium 8.4 Total Bilirubin 3.30 H AST 842 H ALT 1352 H Alkaline Phosphatase 188 H Total Protein 6.1 L Albumin 3.2 L Albumin/Globulin Ratio 1.1 HIV 1&2 Antibody Rapid HIV P24 Antigen
[2018-08-28] MEDS: PROTONIX IV SCH (10:44)
--- NOTE | 2018-08-28 13:41 | Progress Note ---
Assessment and Plan Assessment and plan: Acute hepatitis B infection Continue IV fluids, pain meds and antiemetics as needed. HIV screening, the patient has been advised that he will need hepatitis A vaccination which will be done as an outpatient after he is discharged History Interval history: Review of systems Constitutional: No fevers, no malaise, no joint pains CVS: No chest pain, no orthopnea, no dyspnea on exertion, no pedal edema GI: No abdominal pain, no diarrhea, no vomiting, no constipation Respiratory: No shortness of breath, no wheezing, no coughing Hospitalist Physical - Physical exam Narrative exam: General.: Appears well, no distress, nontoxic HEENT: Moist mucous membranes, extraocular muscles intact, no lymphadenopathy Neck: supple Cardiac: S1-S2 heard Lungs: clear to auscultation bilaterally Abdomen: soft , nontender, nondistended, bowel sounds positive Extremities: no edema clubbing or cyanosis Skin: no rash or lesions Neurologic: no gross focal deficits Psych: calm, and cooperative - Constitutional Vitals: Temp Pulse Resp BP Pulse Ox 98.1 F 67 16 115/67 99 08/28/18 05:09 08/28/18 05:09 08/28/18 05:09 08/28/18 05:09 08/28/18 05:09 Results - Labs CBC & Chem 7: 08/28/18 05:25 08/28/18 05:25 Labs: Laboratory Last Values WBC 7.4 K/mm3 (4.5-11.0) 08/28/18 05:25 RBC 3.89 M/mm3 (3.65-5.03) 08/28/18 05:25 Hgb 12.8 gm/dl (11.8-15.2) 08/28/18 05:25 Hct 38.2 % (35.5-45.6) 08/28/18 05:25 MCV 98 fl (84-94) H 08/28/18 05:25 MCH 33 pg (28-32) H 08/28/18 05:25 MCHC 34 % (32-34) 08/28/18 05:25 RDW 14.1 % (13.2-15.2) 08/28/18 05:25 Plt Count 219 K/mm3 (140-440) 08/28/18 05:25 Lymph % (Auto) 32.1 % (13.4-35.0) 08/28/18 05:25 [place] % (Auto) 14.9 % (0.0-7.3) H 08/28/18 05:25 Eos % (Auto) 10.6 % (0.0-4.3) H 08/28/18 05:25 Baso % (Auto) 0.4 % (0.0-1.8) 08/28/18 05:25 Lymph # 2.4 K/mm3 (1.2-5.4) 08/28/18 05:25 [place] # 1.1 K/mm3 (0.0-0.8) H 08/28/18 05:25 Eos # 0.8 K/mm3 (0.0-0.4) H 08/28/18 05:25 Baso # 0.0 K/mm3 (0.0-0.1) 08/28/18 05:25 Seg Neutrophils % 42.0 % (40.0-70.0) 08/28/18 05:25 Seg Neutrophils # 3.1 K/mm3 (1.8-7.7) 08/28/18 05:25 PT 15.0 Sec. (12.2-14.9) H 08/28/18 05:25 INR 1.14 (0.87-1.13) H 08/28/18 05:25 Sodium 137 mmol/L (137-145) 08/28/18 05:25 Potassium 3.7 mmol/L (3.6-5.0) 08/28/18 05:25 Chloride 101.0 mmol/L (98-107) 08/28/18 05:25 Carbon Dioxide 27 mmol/L (22-30) 08/28/18 05:25 Anion Gap 13 mmol/L 08/28/18 05:25 BUN 9 mg/dL (9-20) 08/28/18 05:25 Creatinine 0.8 mg/dL (0.8-1.5) 08/28/18 05:25 Estimated GFR > 60 ml/min 08/28/18 05:25 BUN/Creatinine Ratio 11 % 08/28/18 05:25 Glucose 88 mg/dL (75-100) 08/28/18 05:25 Calcium 8.4 mg/dL (8.4-10.2) 08/28/18 05:25 Total Bilirubin 3.30 mg/dL (0.1-1.2) H 08/28/18 05:25 AST 842 units/L (5-40) H 08/28/18 05:25 ALT 1352 units/L (7-56) H 08/28/18 05:25 Alkaline Phosphatase 188 units/L (35-129) H 08/28/18 05:25 Total Creatine Kinase 99 units/L (55-170) 08/26/18 01:09 Total Protein 6.1 g/dL (6.3-8.2) L 08/28/18 05:25 Albumin 3.2 g/dL (3.9-5) L 08/28/18 05:25 Albumin/Globulin Ratio 1.1 % 08/28/18 05:25 Lipase 196 units/L (13-60) H 08/26/18 00:00 Urine Color [place] (Yellow) 08/25/18 Unknown Urine Turbidity Clear (Clear) 08/25/18 Unknown Urine pH 7.0 (5.0-7.0) 08/25/18 Unknown Ur Specific [place] 1.015 (1.003-1.030) 08/25/18 Unknown Urine Protein <15 mg/dl mg/dL (Negative) 08/25/18 Unknown Urine Glucose (UA) Neg mg/dL (Negative) 08/25/18 Unknown Urine Ketones Neg mg/dL (Negative) 08/25/18 Unknown Urine Blood Neg (Negative) 08/25/18 Unknown Urine Nitrite Neg (Negative) 08/25/18 Unknown Urine Bilirubin Neg (Negative) 08/25/18 Unknown Urine Urobilinogen 4.0 mg/dL (<2.0) 08/25/18 Unknown Ur Leukocyte Esterase Tr (Negative) 08/25/18 Unknown Urine WBC (Auto) 4.0 /HPF (0.0-6.0) 08/25/18 Unknown Urine RBC (Auto) 3.0 /HPF (0.0-6.0) 08/25/18 Unknown U Epithel Cells (Auto) 2.0 /HPF (0-13.0) 08/25/18 Unknown Urine Mucus 1+ /HPF 08/25/18 Unknown Acetaminophen < 5.0 ug/mL (10.0-30.0) L 08/26/18 13:51 Plasma/Serum Alcohol < 0.01 % (0-0.07) 08/26/18 13:51 Hepatitis A IgM Ab Non-reactive (NonReactive) 08/26/18 01:09 Hep Bs Antigen Reactive (Negative) 08/26/18 01:09 Hep B Core IgM Ab Reactive (NonReactive) A 08/26/18 01:09 Hepatitis C Antibody Non-reactive (NonReactive) 08/26/18 01:09 HIV 1&2 Antibody Rapid Non react (Non React) 08/27/18 13:48 HIV P24 Antigen Non react (Non React) 08/27/18 13:48
[2018-08-28] MEDS ORDERED: PROTONIX PO SCH (22:00)
== END 2018-08-28 15:48 | disposition home or self-care (01) | DRG 378 ==
LOC: ED 23:24 → 3A 08-26 03:50
PROVIDERS: ADMIT Internal Medicine; ATTEND Internal Medicine
DX: K92.0 Hematemesis (principal); B19.10 Unspecified viral hepatitis B without hepatic coma; R19.7 Diarrhea, unspecified
CPT/HCPCS: 36415; 74177; 80053; 80074; 80320; 81001; 82550; 83690; 85014; 85018; 85025; 85610; 86705; 86707; 87350; 87517; 87806; 93005; 93010; 99406; G0378; C9113; G0480; J2270; J7030; Q0162; Q9967